=== PATIENT | male | born 1940 | race Caucasian/White ===

== ENCOUNTER → 2016-08-25 | Day surgery (SDC) | payer MEDICARE ==
[~2016-08-25] MED LIST: AMLO10 PO; BENI40TA30 PO; BUPIVACAINE/EPINEPHRINE 0.5% 50 ML VIAL ONE; CALC600T34 PO; FEXO180 PO; FISH1000 PO; MIDAZOLAM HCL 2 MG/2 ML VIAL ONE; MOME17I; NIAC500 PO; ONDANSETRON HCL 4 MG/2 ML VIAL IV PUSH ONE; OXYBXL10 PO; PROPOFOL 200 MG/20 ML AMP IV ONE; ROSU5 PO; SODIUM CHLOR 0.9% 1000 ML BAG IV ONE; SODIUM CHLOR 0.9% 1000 ML INJ 1,000 ML IV ONE; SODIUM CHLORIDE 0.9% 250 ML ADDBAG IV ONE; SODIUM CHLORIDE 0.9% INJ 250 ML IV ONE; TAB-TAB PO; TAMS0.4C67 PO; VANCOMYCIN HCL 1000 MG VIAL ONE; VITA100017 PO; VITA100T15 PO; VITA400C70 PO
--- NOTE | 2016-08-27 14:29 | MP ---
cc: JORGE BRENNER DATE OF SURGERY 08/25/16 PREOPERATIVE DIAGNOSIS Chronic kidney disease - transitioning from chemo to peritoneal dialysis permanent peritoneal dialysis access. POSTOPERATIVE DIAGNOSIS Chronic kidney disease - transitioning from chemo to peritoneal dialysis permanent peritoneal dialysis access. PROCEDURE Peritoneal dialysis placement. SURGEON Jorge Brenner MD ANESTHESIA General endotracheal/local DESCRIPTION OF PROCEDURE The patient in the supine position and under general endotracheal anesthesia, the abdomen was thoroughly prepped with Betadine and draped in a sterile fashion. One gram of Ancef given intravenously and, following a protocol time-out, the skin and subcutaneous tissue at the two proposed incisional areas preemptively infiltrated with 0.5% Marcaine with epinephrine. A 3 cm incision was performed along the distal lateral infracostal area. The incision was deepened through the anterior rectus sheath. The rectus fibers were . Posterior rectus sheath and peritoneum elevated and a small posterior rectus sheathotomy/peritoneotomy performed through which a 5 meters Surgiport was bluntly advanced into the peritoneal space. The abdomen was insufflated with carbon dioxide. Extensive adhesions between visceral and parietal peritoneal surfaces were visualized within the left lower quadrant - probably related to prior episode of sigmoid diverticulitis. The right abdomen and pelvic regions were relatively clear of adhesions. Thus, the PD catheter was placed on the right side. A separate transverse 3 cm incision was performed immediately lateral and inferior to the umbilicus. The incision was deepened through the anterior rectus sheath. An 18 gauge needle was guided obliquely between the anterior and posterior rectus sheaths and, under laparoscopic visualization, punctures through the posterior rectus sheath, peritoneum and directed towards the mid pelvis. A J-wire was advanced through the needle into the mid pelvis. The needle was exchanged for a catheter insertion sheath. A coiled peritoneal dialysis catheter was delivered into the mid pelvis through the tear-away sheath. The internal catheter graft was placed subjacent to the rectus sheathotomy which was secured around the catheter cuff with 0 PDS. The subcutaneous portion of the catheter was exited through separate incisions. Laterally. The titanium adapter was applied to the catheter tip which was flushed and capped. Strict hemostasis was assured. The left infracostal rectus incision was closed with interrupted 0-PDS, the skin incisions closed with continuous subcuticular 5-0 Monocryl reinforced with Steri-Strips. Catheter exit site was dressed with sterile gauze and Tegaderm. Instrument, needle, sponge count was correct times two. There were no operative complications. The patient went to the recovery room in stable condition in stable condition having tolerated procedure well. MD CARLEY Thompson/ /4:57 PM /2:13 PM
== END | disposition home or self-care (01) ==
LOC: ESDC 12:34
PROVIDERS: ATTEND Surgery Vascular Surgery
DX: Z49.02 Encounter for fitting and adjustment of peritoneal dialysis catheter (principal); N18.6 End stage renal disease
CPT/HCPCS: 00840; 49324; C1750; J2250; J2405; J3010; J3370; J7030